=== PATIENT | male | born 1995 | race Two or more races ===

== ENCOUNTER 2018-07-16 19:24 | Emergency (ER) | payer OTHER ==
[2018-07-16 19:31] VITALS: TEMP 97.6; BMI 26.4
--- NOTE | 2018-07-16 19:42 | PDOC ---
Rapid Medical Evaluation Time Seen by Provider: 07/16/18 19:27 Medical Evaluation: 07/16/18 19:28 I have performed a brief in-person evaluation of this patient. The patient presents with a chief complaint of: "upset stomach" w/ vomiting ( one episode) and diarrhea (3 times) that started today. No recent travel, unusual food, abx use or sick contacts Pertinent physical exam findings:stable I have ordered the following:labs The patient will proceed to the ED for further evaluation. Discharge Disposition - Diagnosis Vomiting and diarrhea - Referrals - Patient Instructions - Post Discharge Activity
[2018-07-16 21:14] LABS: BASO % 0.3 % (0-2.0); HEMATOCRIT 48.6 % (35.4-49); HEMOGLOBIN 15.8 GM/dL (11.7-16.9); LYMPH % 16.7 % (8-40); MCHC 32.5 g/dl (32.0-35.9); MEAN CELL VOLUME 83.1 fl (80-96); MEAN PLT VOLUME 9.9 fl (7.5-11.1); MONO % 7.3 % (3.8-10.2); NEUT % 74.7 % (42.8-82.8); PLATELET COUNT 184 K/MM3 (134-434); RBC 5.85 M/mm3 (4.00-5.60); RDW 13.6 % (11.9-15.9); WHITE BLOOD COUNT 14.8 K/mm3 (4.0-10.0)
--- NOTE | 2018-07-16 21:18 | PDOC ---
History of Present Illness - General Chief Complaint: Pain Stated Complaint: VOMITING/DIARRHEA Time Seen by Provider: 07/16/18 19:27 Past History - Past Medical History Allergies/Adverse Reactions: Allergies Allergy/AdvReac Type Severity Reaction Status Date / Time Fish Containing Products Allergy Verified 07/16/18 19:31 shellfish derived Allergy Verified 07/16/18 19:31 COPD: No - Suicide/Smoking/Psychosocial Hx Smoking History: Unknown if ever smoked Have you smoked in the past 12 months: No Information on smoking cessation initiated: No Hx Alcohol Use: No Drug/Substance Use Hx: No *Physical Exam - Vital Signs Last Vital Signs Temp Pulse Resp BP Pulse Ox 97.6 F 94 H 16 119/80 100 07/16/18 19:29 07/16/18 19:29 07/16/18 19:29 07/16/18 19:29 07/16/18 19:29 ED Treatment Course - LABORATORY CBC & Chemistry Diagram: 07/16/18 20:54 07/16/18 20:54 *DC/Admit/Observation/Transfer Diagnosis at time of Disposition: Vomiting and diarrhea - Referrals Referrals: Brandon Paez MD [Primary Care Provider] - - Patient Instructions - Post Discharge Activity
[2018-07-16 21:40] LABS: ALBUMIN 4.2 g/dl (3.4-5.0); BILIRUBIN,TOTAL 0.7 mg/dL (0.2-1); CALCIUM 8.8 mg/dL (8.5-10.1); CREATININE 0.7 mg/dL (0.55-1.3); POTASSIUM 4.4 mmol/L (3.5-5.1); TOT PROT 7.3 g/dl (6.4-8.2)
--- NOTE | 2018-07-16 22:02 | PDOC ---
History of Present Illness - General Chief Complaint: Pain Stated Complaint: VOMITING/DIARRHEA Time Seen by Provider: 07/16/18 19:27 History Source: Patient - History of Present Illness Initial Comments: 07/16/18 23:29 22-year-old male complaining of nausea vomiting and diarrhea since noon after eating [employer] ribs. Patient reports some epigastric discomfort. Patient reports that vomiting stopped now with several episodes of diarrhea symptoms in the ER. Denies past medical history Past History - Past Medical History Allergies/Adverse Reactions: Allergies Allergy/AdvReac Type Severity Reaction Status Date / Time Fish Containing Products Allergy Verified 07/16/18 19:31 shellfish derived Allergy Verified 07/16/18 19:31 Home Medications: Ambulatory Orders Gemfibrozil 600 mg PO DAILY 07/16/18 COPD: No - Suicide/Smoking/Psychosocial Hx Smoking History: Unknown if ever smoked Have you smoked in the past 12 months: No Information on smoking cessation initiated: No Hx Alcohol Use: No Drug/Substance Use Hx: No Review of Systems - Review of Systems Able to Perform ROS?: Yes Is the patient limited Israeli proficient: No Constitutional: No: Symptoms Reported, See HPI, Chills, Diaphoresis, Fever, Loss of Appetite, Malaise, Night Sweats, Weakness, Weight Stable, Unintentional Wgt. Loss, Unexplained wgt Loss, Other ABD/GI: Yes: Diarrhea, Nausea, Vomiting, Abdominal cramping : No: Symptoms Reported, See HPI, Burning, Dysuria, Discharge, Frequency, Flank Pain, Hematuria, Incontinence, Pain, Urgency, Testicular Mass, Testicular Swelling, Lesions, Testicular Pain, Other *Physical Exam - Vital Signs Last Vital Signs Temp Pulse Resp BP Pulse Ox 97.6 F 94 H 16 119/80 100 07/16/18 19:29 07/16/18 19:29 07/16/18 19:29 07/16/18 19:29 07/16/18 19:29 - Physical Exam General Appearance: Yes: Appropriately Dressed Cardiovascular: positive: Regular Rhythm, Regular Rate Gastrointestinal/Abdominal: positive: Tender (epigastric), Soft, Increased Bowel Sounds Extremity: positive: Normal Capillary Refill, Normal Inspection, Normal Range of Motion Integumentary: positive: Normal Color, Dry, Warm Neurologic: positive: Fully Oriented, Alert, Normal Mood/Affect ED Treatment Course - LABORATORY CBC & Chemistry Diagram: 07/16/18 20:54 07/16/18 20:54 - ADDITIONAL ORDERS Additional order review: Laboratory Results 07/16/18 20:54 Sodium 136 Potassium 4.4 Chloride 105 Carbon Dioxide 27 Anion Gap 4 L BUN 22 H Creatinine 0.7 Est GFR (CKD-EPI)AfAm 155.25 Est GFR (CKD-EPI)NonAf 133.96 Random Glucose 83 Calcium 8.8 Total Bilirubin 0.7 AST 26 ALT 43 Alkaline Phosphatase 55 Total Protein 7.3 Albumin 4.2 Lipase 78 07/16/18 20:54 RBC 5.85 H MCV 83.1 MCHC 32.5 RDW 13.6 MPV 9.9 Neutrophils % 74.7 Lymphocytes % 16.7 Monocytes % 7.3 Eosinophils % 1.0 Basophils % 0.3 Progress Note - Progress Note Progress Note: a: gastroenteritis P: IVF labs famotidine zofran po challenge Medical Decision Making - Medical Decision Making 07/17/18 00:29 patient now drinking water. tolerated water after zofran. will d/c home to continue PO hydration at home. *DC/Admit/Observation/Transfer Diagnosis at time of Disposition: Gastroenteritis - Discharge Dispostion Disposition: HOME - Referrals Referrals: Brandon Paez MD [Primary Care Provider] - - Patient Instructions Printed Discharge Instructions: Viral Gastroenteritis Additional Instructions: drink plenty of fluids including water, Gatorade start a BRAT ( bananas, rice apples toast) follow up with your doctor return to the ER if symptoms worsen - Post Discharge Activity Forms/Work/School Notes: Back to Work
[2018-07-16] MEDS ORDERED: ONDANSETRON 4 MG/2 ML VIAL IVPB ONE (22:03)
[2018-07-16] MEDS ORDERED: SODIUM CHLORIDE 0.9% 500 ML INFUS.BAG IV ONE (22:03)
[2018-07-16] MEDS ORDERED: FAMOTIDINE 20 MG/50 ML IVPB 20 MG/50 ML MG IVPB ONE ×2 (22:03→23:59)
[2018-07-16] MEDS ORDERED: ONDANSETRON 4 MG/2 ML VIAL ONE (22:37)
[2018-07-17 01:35] VITALS: BP 121/72; PULSE 88
== END 2018-07-17 00:40 | disposition home or self-care (01) ==
LOC: JER 19:24
PROC: 3E0337Z Introduction of Electrolytic and Water Balance Substance into Peripheral Vein, Percutaneous Approach (ICD-10-PCS; principal; 2018-07-16)
PROC: 3E033GC Introduction of Other Therapeutic Substance into Peripheral Vein, Percutaneous Approach (ICD-10-PCS; 2018-07-16)
DX: K52.9 Noninfective gastroenteritis and colitis, unspecified (principal)
CPT/HCPCS: 36415; 80053; 83690; 85025; 99282-25

== ENCOUNTER 2020-09-01 14:28 | Emergency (ER) | payer OTHER ==
[2020-09-01 14:39] VITALS: BP 125/76; PULSE 91; TEMP 98.3; BMI 29.2
[2020-09-01] MEDS ORDERED: SODIUM CHLORIDE 1,000 ML IV STA (14:41)
[2020-09-01] MEDS ORDERED: FAMOTIDINE 20 MG/50 ML IVPB 20 MG/50 ML MG IVPB ONE ×2 (14:42→14:54)
[2020-09-01] MEDS ORDERED: DEXAMETHASONE SOD PHOSPHATE 10 MG/1 ML VIAL IVPUSH ONE (14:42)
[2020-09-01] MEDS ORDERED: DEXAMETHASONE SOD PHOSPHATE 10 MG/1 ML VIAL ONE (14:50)
== END 2020-09-01 17:19 | disposition home or self-care (01) ==
LOC: JERFT 14:28
PROC: 3E033GC Introduction of Other Therapeutic Substance into Peripheral Vein, Percutaneous Approach (ICD-10-PCS; principal; 2020-09-01)
PROC: 3E033GC Introduction of Other Therapeutic Substance into Peripheral Vein, Percutaneous Approach (ICD-10-PCS; 2020-09-01)
PROC: 3E033GC Introduction of Other Therapeutic Substance into Peripheral Vein, Percutaneous Approach (ICD-10-PCS; 2020-09-01)
PROC: 3E0337Z Introduction of Electrolytic and Water Balance Substance into Peripheral Vein, Percutaneous Approach (ICD-10-PCS; 2020-09-01)
DX: T78.40XA Allergy, unspecified, initial encounter (principal)
CPT/HCPCS: 99284-25; J1100

== ENCOUNTER 2024-09-05 04:55 | Emergency (ER) | payer OTHER ==
[2024-09-05 05:03] VITALS: BP 122/93; PULSE 89; RESP 21; TEMP 97.5; BMI 33.5
[2024-09-05] MEDS ORDERED: ALBUTEROL SO4 2.5/IPRATROPIUM 0.5 INH SOL 3 ML VIAL.NEB. NEB ONE (05:13)
[2024-09-05] MEDS: ALBUTEROL SO4 2.5/IPRATROPIUM 0.5 INH SOL 3 ML VIAL.NEB. NEB ONE (05:17)
[2024-09-05] MEDS ORDERED: DEXAMETHASONE 4 MG TABLET (FP) ONE (05:26)
[2024-09-05] MEDS: DEXAMETHASONE 4 MG TABLET (FP) PO ONE (05:29)
== END 2024-09-05 06:33 | disposition home or self-care (01) ==
LOC: JER 04:55
PROC: 3E0F7GC Introduction of Other Therapeutic Substance into Respiratory Tract, Via Natural or Artificial Opening (ICD-10-PCS; principal; 2024-09-05)
DX: J45.21 Mild intermittent asthma with (acute) exacerbation (principal); R07.89 Other chest pain; R05.9 Cough, unspecified; R06.02 Shortness of breath
CPT/HCPCS: 99283-25